=== PATIENT | female | born 1990 | race Caucasian/White ===

== ENCOUNTER 2022-11-30 11:07 | Outpatient (CLI) | payer BC | END 2022-11-30 11:08 | disposition home or self-care (01) | LOC: CSHLAB 11:07 | PROVIDERS: ATTEND Obstetrics & Gynecology | DX: Z01.812 Encounter for preprocedural laboratory examination (principal); Z53.9 Procedure and treatment not carried out, unspecified reason | CPT/HCPCS: 36415; 85014; 85018; 85049; 86780; 86850; 86900; 86901; 87340 ==

== ENCOUNTER 2022-12-02 07:10 | Inpatient (IN) | payer BC ==
[2022-11-30 11:49] LABS: Hematocrit 41.2 % (34.9-44.5); Hemoglobin 13.7 g/dL (12.0-15.5); Platelet Count 298 10x3/uL (150-450)
[2022-11-30 12:16] LABS: HBSAg Index 0.19 S/CO (0-0.99); Hep B Surf Ag Non-Reactive S/CO (NonReactive)
[2022-11-30 12:17] LABS: Syphilis Antibody Nonreactive (Nonreactive); Syphilis Antibody Index 0.04 S/CO (<1.00 Non-Reactive)
[2022-12-02] MEDS ORDERED: Famotidine/PF 20 mg/2ml Vial SLOW IVP PRN (07:58)
[2022-12-02] MEDS ORDERED: Ondansetron PF 4 MG/2 ML Vial IVP PRN ×3 (07:58→15:14)
[2022-12-02] MEDS ORDERED: NS w/ Oxytocin 30 units 500 ML IV SCH (07:58)
[2022-12-02] MEDS ORDERED: Promethazine HCl 25 MG/ML VIAL IM PRN ×2 (07:58→10:35)
[2022-12-02] MEDS ORDERED: hydrALAZINE 20 MG/ML VIAL SLOW IVP PRN ×2 (07:58→15:14)
[2022-12-02] MEDS ORDERED: Lactated Ringer's 1,000 ML IV SCH (07:58)
[2022-12-02] MEDS ORDERED: Bicitra 30 ML UDCUP PO PRN (07:58)
[2022-12-02] MEDS ORDERED: CEFAZOLIN 2 GM in Sodium Chloride 0.9% 100 ML IVPB SCH (07:58)
[2022-12-02 08:06] VITALS: BMI 36.0
[2022-12-02] MEDS ORDERED: Morphine PF 10 MG/10 ML VIAL ONE (08:48)
[2022-12-02] MEDS ORDERED: Bupivacaine 0.75% W/DEXTROSE 8.25% 2 ML AMP ONE (08:48)
[2022-12-02] MEDS ORDERED: ePHEDrine Sulfate 50 MG/10 ML VIAL ONE (08:48)
[2022-12-02] MEDS ORDERED: Lidocaine 2% MPF 10 ML AMP (For Epidural Use) ONE (08:49)
[2022-12-02] MEDS ORDERED: Phenylephrine 40 MG/NS 250 ML 250 ML ONE (08:49)
[2022-12-02] MEDS ORDERED: Dexamethasone 4 mg/ml Vial ONE (08:49)
[2022-12-02] MEDS ORDERED: Ketorolac Tromethamine 30 MG/ML VIAL ONE (08:49)
[2022-12-02] MEDS ORDERED: Ondansetron PF 4 MG/2 ML Vial ONE (08:49)
[2022-12-02] MEDS ORDERED: PHENYLEPHRINE-NS 100 MCG/ML 10 ML SYRINGE ONE (08:49)
[2022-12-02] MEDS ORDERED: Lidocaine 1% PF 10 ML AMP ONE (08:50)
[2022-12-02] MEDS ORDERED: Oxytocin 10 UNITS/ML VIAL ONE (08:56)
[2022-12-02] MEDS ORDERED: Fentanyl 100 MCG/2 ML VIAL SLOW IVP PRN (10:35)
[2022-12-02] MEDS ORDERED: Moisturizing Cream (Eucerin) 113 GM JAR TOP PRN (10:35)
[2022-12-02] MEDS ORDERED: Meperidine HCl/PF 25 MG/ML VIAL SLOW IVP PRN (10:35)
[2022-12-02] MEDS ORDERED: Promethazine HCl 25 MG SUPP PR PRN (10:35)
[2022-12-02] MEDS ORDERED: Ondansetron HCl/PF 4 MG/2 ML Vial IVP PRN (10:35)
[2022-12-02] MEDS ORDERED: Naloxone HCl 0.4 mg/ml Vial IV PRN (10:35)
[2022-12-02] MEDS ORDERED: diphenhydrAMINE 50 MG/ML VIAL IVP PRN (10:35)
[2022-12-02] MEDS ORDERED: Naloxone HCl 0.4 mg/ml Vial IVP PRN ×2 (10:35)
[2022-12-02] MEDS ORDERED: Communication Order-Pharmacy FS SCH (10:45)
[2022-12-02] MEDS: fentaNYL 50 mcg/mL 1 mL Vial ONE ×2 (14:58→19:31)
[2022-12-02] MEDS ORDERED: fentaNYL 50 mcg/mL 1 mL Vial ONE (14:59)
[2022-12-02] MEDS ORDERED: diphenhydrAMINE 25 MG CAP PO PRN (15:14)
[2022-12-02] MEDS ORDERED: Lanolin Ointment 7 GM TUBE TOP PRN (15:14)
[2022-12-02] MEDS ORDERED: Boostrix 0.5 ML (Tdap) VIAL (>/=7 yrs of age) IM ONE (15:14)
[2022-12-02] MEDS ORDERED: Bisacodyl 10 MG SUPP PR PRN (15:14)
[2022-12-02] MEDS ORDERED: Ferrous Sulfate 325 MG TAB PO SCH (16:00)
[2022-12-02] MEDS ORDERED: Prenatal Vitamin 1 TAB PO SCH (16:00)
[2022-12-02] MEDS ORDERED: Docusate 100 MG CAP PO SCH (16:00)
[2022-12-02] MEDS: Ketorolac Tromethamine 30 MG/ML VIAL IVP SCH ×2 (16:27→22:13)
[2022-12-02] MEDS ORDERED: Morphine 2 MG/ML VIAL SLOW IVP PRN (18:53)
[2022-12-02] MEDS: Ferrous Sulfate 325 MG TAB PO SCH (21:00)
[2022-12-02] MEDS: Simethicone Chewable 80 MG TAB PO PRN (22:12)
[2022-12-02] MEDS: Docusate 100 MG CAP PO SCH (22:13)
[2022-12-02] MEDS ORDERED: HYDROcodone/Acetaminophen 5/325 mg Tablet PO PRN (22:45)
[2022-12-03] MEDS: Ketorolac Tromethamine 30 MG/ML VIAL IVP SCH ×2 (03:59→14:38)
[2022-12-03 05:09] LABS: Hemoglobin 11.3 g/dL (12.0-15.5); Mean Corpuscular HGB CONC 32.3 g/dL (32.0-36.0); Mean Corpuscular Hemoglobin 27.2 pg (27.0-33.0); Mean Corpuscular Volume 84.1 fl (81.6-98.3); Mean Platelet Volume 11.2 fl (7.4-10.4); Platelet Count 252 10x3/uL (150-450); RBC Distribution Width 13.6 % (11.5-14.5); Red Blood Cell (RBC) Count 4.16 10x6/uL (3.90-5.03); White Blood Cell (WBC) Count 11.8 10x3/uL (3.5-10.5)
[2022-12-03] MEDS: Docusate 100 MG CAP PO SCH ×2 (07:51→20:20)
[2022-12-03] MEDS: HYDROcodone/Acetaminophen 5/325 mg Tablet PO PRN ×4 (07:51→20:20)
[2022-12-03] MEDS ORDERED: HYDROmorphone 0.5 MG/0.5 ML SYRINGE SLOW IVP SCH (10:00)
[2022-12-03] MEDS ORDERED: Ketorolac Tromethamine 30 MG/ML VIAL IVP SCH (10:15)
[2022-12-03] MEDS: Prenatal Vitamin 1 TAB PO SCH (13:48)
[2022-12-03] MEDS: Ferrous Sulfate 325 MG TAB PO SCH (13:49)
[2022-12-03] MEDS: Ibuprofen 800 MG TAB PO SCH ×2 (15:54→23:12)
[2022-12-03] MEDS: Simethicone Chewable 80 MG TAB PO PRN (20:25)
[2022-12-04] MEDS: Ferrous Sulfate 325 MG TAB PO SCH ×2 (00:41→10:37)
[2022-12-04] MEDS: HYDROcodone/Acetaminophen 5/325 mg Tablet PO PRN ×2 (05:44→10:34)
[2022-12-04] MEDS: Ibuprofen 800 MG TAB PO SCH (05:45)
[2022-12-04 05:54] VITALS: TEMP 98.4
[2022-12-04 07:40] VITALS: BP 140/85
[2022-12-04] MEDS: Docusate 100 MG CAP PO SCH (10:34)
[2022-12-04] MEDS: Prenatal Vitamin 1 TAB PO SCH (10:37)
== END 2022-12-04 12:30 | disposition home or self-care (01) | DRG 788 ==
LOC: CSHLD 07:10 → CSHPP 15:30
PROVIDERS: ADMIT Obstetrics & Gynecology; ATTEND Obstetrics & Gynecology
PROC: 10D00Z1 Extraction of Products of Conception, Low, Open Approach (ICD-10-PCS; principal; 2022-12-02)
PROC: 3E033VJ Introduction of Other Hormone into Peripheral Vein, Percutaneous Approach (ICD-10-PCS; 2022-12-02)
DX: O24.420 Gestational diabetes mellitus in childbirth, diet controlled (principal); O32.1XX0 Maternal care for breech presentation, not applicable or unspecified; Z3A.39 39 weeks gestation of pregnancy; Z37.0 Single live birth; Z98.84 Bariatric surgery status
CPT/HCPCS: 36415; 51702; 85014; 85018; 85027; 85049; 86780; 86850; 86900; 86901; 87340; J1100; J1170; J1885; J2001; J2272; J2274; J2405; J2590; J3010; J3490; S0028

== ENCOUNTER 2022-12-06 05:17 | Emergency (ER) | payer BC ==
[2022-12-06 05:57] LABS: ALT (SGPT) 47 U/L (8-55); AST (SGOT) 44 U/L (5-34); Albumin 3.3 g/dL (3.5-5.0); Alkaline Phosphatase 130 U/L (40-110); Anion Gap 15 mmol/L (10-20); BUN (Urea Nitrogen) 9 mg/dL (7.0-18.7); Bilirubin, Total 0.9 mg/dL (0.2-1.2); Calc. Creatinine Clearance 0 mL/min (70-130); Calcium 8.6 mg/dL (7.8-10.44); Carbon Dioxide 21 mmol/L (22-29); Chloride 108 mmol/L (98-107); Estimated GFR 122; Globulin 2.5 g/dL (2.4-3.5); Glucose 98 mg/dL (70-105); Protein, Total 5.8 g/dL (6.0-8.3); Sodium 140 mmol/L (136-145)
[2022-12-06 06:02] LABS: #Eosinphils 0.1 10x3/uL (0.0-0.5); #Monocytes 0.5 10x3/uL (0.0-1.1); #Neutrophils 6.1 10x3/uL (1.5-8.4); %Basophils 0.2 % (0.0-2.0); %Eosinophils 1.3 % (0.0-6.0); %Lymphocytes 21.6 % (18.0-47.0); %Monocytes 6.1 % (0.0-10.0); %Neutrophils 70.2 % (40.0-75.0); Hematocrit 36.9 % (34.9-44.5); Hemoglobin 12.2 g/dL (12.0-15.5); Mean Corpuscular HGB CONC 33.1 g/dL (32.0-36.0); Mean Corpuscular Hemoglobin 27.3 pg (27.0-33.0); Mean Corpuscular Volume 82.6 fl (81.6-98.3); Mean Platelet Volume 10.4 fl (7.4-10.4); Platelet Count 318 10x3/uL (150-450); RBC Distribution Width 13.7 % (11.5-14.5); Red Blood Cell (RBC) Count 4.47 10x6/uL (3.90-5.03); White Blood Cell (WBC) Count 8.6 10x3/uL (3.5-10.5)
[2022-12-06 06:03] LABS: Troponin I 0.022 ng/mL (< 0.028)
== END 2022-12-06 06:54 | disposition home or self-care (01) ==
LOC: CSHERS 05:17
DX: J18.9 Pneumonia, unspecified organism (principal)
CPT/HCPCS: 71045; 71275; 80053; 83880; 84484; 85025; 93005